=== PATIENT | male | born 1975 | race Caucasian/White ===

== ENCOUNTER 2022-08-20 14:39 | Emergency (ER) | payer BC, SELFPAY ==
--- NOTE | 2022-08-20 14:49 | ED.LOWEXIN ---
HPI - Extremity Injury (Lower) General Chief Complaint: Extremity Problem,Nontraumatic Stated Complaint: rt knee pain Source: patient Mode of arrival: ambulatory Limitations: no limitations History of Present Illness HPI Narrative: 46-year-old male presented for complaint of acute on chronic right knee pain. He states he has had pain to this knee with intermittent swelling since a teenager. Over the last month pain has persisted. Pain is constant, throbbing, and has decreased ROM when flexing knee. Rates 7/10. Denies new injury or recent overuse. 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 Scheduled 09/24/22 for injection. [facility] and is requesting fluid be drained or an injection. Currently denies redness, numbness, tingling, or weakness. Takes occasional naproxen for symptoms. Related Data Allergies Allergy/AdvReac Type Severity Reaction Status Date / Time No Known Allergies Allergy Verified 08/20/22 14:53 Review of Systems Review of Systems: CONSTITUTIONAL: Denies body aches, fever, chills EYES: Denies visual changes ENT: Denies rhinorrhea, congestion CARDIOVASCULAR: Denies chest pain, palpitations, or edema. RESPIRATORY: Denies cough or dyspnea. SKIN: Denies rash, itching, or wounds. MUSCULOSKELETAL: Per HPI NEUROLOGIC: Denies headache, numbness, tingling, or weakness. 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 Please see nursing chart for further information. There is no relevant family history pertinent to the presenting complaint Exam Narrative: GENERAL: Well-appearing CHEST: Speaks in full sentences. No respiratory distress. HEART: Regular rate and rhythm. Normal and equal peripheral pulses. EXTREMITIES: RLE has normal strength and sensation, slightly limited range of motion with flexion of right knee. No redness, swelling or ecchymosis, No point tenderness. No open wounds, or obvious deformity; alignment normal, pulse palpable and equal bilaterally, skin warm, dry, pink. Capillary refill less than 3 seconds. Steady gait. SKIN: Warm, dry, no rash. NEURO: Alert and oriented x3. PSYCH: Normal mood and affect Course Course Emergency Course: Patient is aware of diagnosis, understands and agrees to treatment plan. Anticipatory guidance given. Patient agrees to follow-up as directed and is aware of reasons to seek care at the emergency department. Portions of this record may have been created with voice recognition software Level of Care: Express Care Visit Vital Signs Vital signs: Vital Signs Temperature 98.8 F 08/20/22 14:50 Pulse Rate 85 08/20/22 14:50 Respiratory Rate 16 08/20/22 14:50 Blood Pressure 141/86 H 08/20/22 14:50 Pulse Oximetry 99 08/20/22 14:50 Oxygen Delivery Room Air 08/20/22 14:50 Temperature 98.8 F 08/20/22 14:50 Pulse Rate 85 08/20/22 14:50 Respiratory Rate 16 08/20/22 14:50 Blood Pressure 141/86 H 08/20/22 14:50 Pulse Oximetry 99 08/20/22 14:50 Oxygen Delivery Room Air 08/20/22 14:50 Reviewed MDM - Extremit
[2022-08-20 14:50] VITALS: BP 141/86; PULSE 85; RESP 16; TEMP 37.1; O2SAT 99
== END 2022-08-20 15:05 | disposition home or self-care (01) ==
PROVIDERS: Emergency Provider Nurse Practitioner Family; PCP Internal Medicine
DX: M25.561 Pain in right knee (principal)
CPT/HCPCS: 99213; G0463